=== PATIENT | female | born 1960 | race Hispanic/Latino ===

== ENCOUNTER 2022-05-29 15:28 | Emergency (ER) | payer SELFPAY ==
[2022-05-29] VITALS (30 sets, daily range): BP systolic 95–196; BP diastolic 62–95
[~2022-05-29] VITALS: Ht 154.9 cm; Wt 51.1 kg
[~2022-05-29 15:28] MED LIST: ATIVAN0.5 MG OR; NAPROSYN500 MG OR
[2022-05-29 16:06] LABS: HEMATOCRIT 31.9 % (37.0-47.0); HEMOGLOBIN 10.6 g/dl (12.0-16.0); IMMATURE GRANULOCYTES 1.3 % (0.0-5.0); MEAN CELL VOLUME 85.1 fL CALC (80.0-100.0); MEAN CORPUSCULAR HGB 28.3 pG CALC (26.0-32.0); MEAN CORPUSCULAR HGB CONC 33.2 g/dL CAL (32.0-36.0); NEUT# 10.3 thou/uL (2.00-7.15); RED BLOOD COUNT 3.75 mill/uL (4.20-5.60)
[2022-05-29 16:26] LABS: ANION GAP 12 (6-22 (CALC)); BUN 9 mg/dL (8-23); BUN/CREATININE RATIO 21 (12-20 (CALC)); CARBON DIOXIDE 22 mmol/l (22-30); CHLORIDE 104 mmol/l (95-108); CREATININE 0.4 mg/dL (0.5-1.0); GFR FOR AFR.AMER. > 60 ML/MIN (>=60 (CALC)); GFR OTHER RACES > 60 ML/MIN (>=60 (CALC)); POTASSIUM 3.9 mmol/l (3.5-5.1); SGOT/AST 61 u/l (9-36); SODIUM 134 mmol/l (137-146); TOTAL PROTEIN 8.6 g/dL (6.3-8.2)
[2022-05-29 16:27] LABS: ALBUMIN 3.7 g/dL (3.2-5.0); ALKALINE PHOSPHATASE 559 u/l (38-126); BILIRUBIN, TOTAL 13.2 mg/dL (0.0-1.4)
[2022-05-30] VITALS: BP 155/75
== END 2022-05-30 00:01 | disposition short-term general hospital (02) | DRG 444 ==
LOC: ED 15:28
PROVIDERS: Family Medicine
DX: K80.30 Calculus of bile duct with cholangitis, unspecified, without obstruction (principal); U07.1 COVID-19
CPT/HCPCS: Q9967